=== PATIENT | female | born 1990 | race Caucasian/White ===

== ENCOUNTER 2019-01-03 12:04 | Emergency (ER) | payer OTHER | END 2019-01-03 14:04 | disposition left against medical advice (07) | LOC: FTE 12:04 | DX: O99.89 Other specified diseases and conditions complicating pregnancy, childbirth and the puerperium (principal); R04.0 Epistaxis; Z3A.37 37 weeks gestation of pregnancy | CPT/HCPCS: 99282; Z7502 ==